=== PATIENT | male | born 1965 | race Caucasian/White ===

== ENCOUNTER 2019-10-21 09:23 | Emergency (ER) | payer MEDICAID, OTHER ==
[~2019-10-21] VITALS: Ht 175.3 cm; Wt 97.2 kg
[~2019-10-21 09:23] MED LIST: IBUP-1985 PO; KETO15CR2 TP
[2019-10-21 09:30] VITALS: BP 154/103
== END 2019-10-21 10:35 | disposition home or self-care (01) ==
LOC: ER 09:23
DX: F10.10 Alcohol abuse, uncomplicated (principal); I10 Essential (primary) hypertension; F17.200 Nicotine dependence, unspecified, uncomplicated; F15.90 Other stimulant use, unspecified, uncomplicated; Z90.49 Acquired absence of other specified parts of digestive tract; Z59.0 Homelessness; Z56.0 Unemployment, unspecified; Z79.899 Other long term (current) drug therapy
CPT/HCPCS: 99281

== ENCOUNTER 2019-11-03 19:47 | Emergency (ER) | payer OTHER ==
[~2019-11-03] VITALS: Ht 175.3 cm; Wt 100.0 kg
[2019-11-03] MEDS ORDERED: morphine 4 MG/ML inj SYRINge IV ONE ×2 (20:15→21:30)
[2019-11-03] MEDS ORDERED: ondansetron/PF 4mg/2ml inj IV ONE ×2 (20:15→21:30)
[2019-11-03 20:20] LABS: EOSINOPHILS # (AUTO) 0.2 X10'3 (0-0.9); EOSINOPHILS % (AUTO) 2.2 % (0-6); HEMOGLOBIN 16.8 g/dl (14.0-17.9); MEAN CORPUSCULAR VOLUME 96.3 FL (78-98); MEAN PLATELET VOLUME 10.6 FL (7.4-10.4); MONOCYTES # (AUTO) 0.8 X10'3 (0-0.9)
[2019-11-03] MEDS ORDERED: proCHLORperazine 10 MG/2 ml inj IV ONE (20:20)
[2019-11-03] MEDS ORDERED: diphenhydrAMINE 50 mg/ml inj IV ONE (20:20)
[2019-11-03 20:21] LABS: BASOPHILS # (AUTO) 0.1 X10'3 (0-0.2); BASOPHILS % (AUTO) 0.6 % (0-1); HEMATOCRIT 49.1 % (42.0-52.0); LYMPHOCYTES # (AUTO) 4.8 X10'3 (1.1-4.8); LYMPHOCYTES % (AUTO) 48.5 % (21-51); MEAN CORPUSCULAR HGB CONC 34.3 g/dL (33.0-36.5); MONOCYTES % (AUTO) 8.1 % (2-12); NEUTROPHILS # (AUTO) 4.1 X10'3 (1.8-7.7); NEUTROPHILS % (AUTO) 40.6 % (42-75); PLATELET COUNT 197 X10'3 (140-440); RED BLOOD COUNT 5.09 X10'6 (4.70-6.10); RED CELL DISTRIBUTION WIDTH 13.1 % (11.5-14.5)
[2019-11-03 20:30] LABS: CLARITY,URINE CLEAR (Clear); COLOR,URINE YELLOW (Yellow); GLUCOSE, URINE NEGATIVE (Neg); KETONES,URINE NEGATIVE (Neg); LEUKOCYTE ESTERASE ,URINE NEGATIVE (Neg); NITRITES, URINE NEGATIVE (Neg); OCCULT BLOOD,URINE NEGATIVE (Neg); PROTEIN,URINE NEGATIVE (Neg)
[2019-11-03 20:30] LABS: ALANINE AMINOTRANSFERASE 27 U/L (12-78); ALBUMIN 3.4 G/DL (3.4-5.0); ALBUMIN/GLOBULIN RATIO 0.8 (1.1-1.5); ALKALINE PHOSPHATASE 106 IU/L (46-116); ANION GAP 6 (8-16); ASPARTATE AMINO TRANSFERASE 22 U/L (10-37); BILIRUBIN,TOTAL 0.5 MG/DL (0.1-1.0); BLOOD UREA NITROGEN 20 MG/DL (7-18); BUN/CREATININE RATIO 17.1 (5.4-32.0); CHLORIDE 104 MMOL/L (99-107); CREATININE 1.17 MG/DL (0.60-1.10); GLUCOSE 126 MG/DL (70-104); LIPASE 250 U/L (73-393); POTASSIUM 3.6 MMOL/L (3.5-5.1); SODIUM 139 MMOL/L (135-145); TOTAL PROTEIN 7.5 G/DL (6.4-8.2); eGFR 65 ML/MIN
[2019-11-03 20:35] LABS: UA COLLECTION TYPE NON-SPECIFIED
[2019-11-03 20:40] LABS: PLATELET ESTIMATE NORMAL
[2019-11-03 20:42] LABS: LARGE PLATELETS FEW
[2019-11-03 20:46] LABS: ETHANOL < 0.010 GM/DL (0.0-0.010)
[2019-11-03 21:13] LABS: TROPONIN I < 0.04 NG/ML (0.0-0.05)
[2019-11-03] MEDS ORDERED: iohexol 350MG/ML 100ml bottle IV ONE (21:17)
[2019-11-03] MEDS ORDERED: ONDA4TAB6 PO (21:56)
[2019-11-03] MEDS ORDERED: famotidine 20mg tablet PO ONE (22:10)
[2019-11-03 22:40] VITALS: BP 145/86
== END 2019-11-03 22:40 | disposition home or self-care (01) ==
LOC: ER 19:48
DX: K29.00 Acute gastritis without bleeding (principal); R10.11 Right upper quadrant pain; R11.10 Vomiting, unspecified; I10 Essential (primary) hypertension; F15.90 Other stimulant use, unspecified, uncomplicated; Z59.0 Homelessness; Z56.0 Unemployment, unspecified
CPT/HCPCS: 36415; 71045; 71275; 74174; 80053; 80320; 81003; 83690; 84484; 85025; 93005; 96374; 96375; 96376; 99285; J0780; J1200; J2270; J2405; Q9967

== ENCOUNTER 2023-04-03 07:01 | Emergency (ER) | payer MEDICAID ==
[~2023-04-03] VITALS: Ht 175.3 cm; Wt 100.0 kg
[~2023-04-03 07:01] MED LIST changes: +ONDA4TAB6 PO
[2023-04-03 07:06] VITALS: TEMP 97.8
--- NOTE | 2023-04-03 07:27 | NUR ---
pt placed in room while on break he endorses visit re medical clearance for rehab last drink on sunday last meth use 2 days ago denies s/s withdrawal " I have been going to out pt rehab and slowly weaning myself off but I need the 90 in pt and sober living not the spin dry of 30 day in pt"
[2023-04-03 08:00] VITALS: BP 148/89; PULSE 89; RESP 17; O2SAT 96
== END 2023-04-03 08:03 | disposition home or self-care (01) ==
LOC: ER 07:02
DX: F10.10 Alcohol abuse, uncomplicated (principal); Z00.8 Encounter for other general examination; I10 Essential (primary) hypertension; E11.9 Type 2 diabetes mellitus without complications; F15.10 Other stimulant abuse, uncomplicated
CPT/HCPCS: 99281